=== PATIENT | male | born 1970 | race Caucasian/White ===

== ENCOUNTER 2018-12-19 15:18 | Inpatient (IN) | payer OTHER ==
[2018-12-19 17:34] VITALS: BMI 20.3
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
[2018-12-19] MEDS ORDERED: BISMUTH SUBSALICYLATE 524 MG/30 ML UD PO PRN (19:43)
[2018-12-19] MEDS ORDERED: MAGNESIUM HYDROX 2400MG/30ML ORAL SUSPENSION 30 ML CUP PO PRN (19:43)
[2018-12-19] MEDS ORDERED: MAGNESIUM CITRATE 300 ML BOTTLE PO PRN (19:43)
[2018-12-19] MEDS ORDERED: ACETAMINOPHEN 325 MG TABLET (FP) PO PRN ×2 (19:43)
[2018-12-19] MEDS ORDERED: hydrOXYzine PAMOATE 25 MG CAPSULE (FP) PO PRN (19:43)
[2018-12-19] MEDS ORDERED: NICOTINE POLACRILEX 2 MG GUM BUC PRN (19:43)
[2018-12-19] MEDS ORDERED: guaiFENesin 200 MG/10 ML 10 ML UNIT-DOSE CUPS PO PRN (19:43)
[2018-12-19] MEDS ORDERED: MENTHOL/PHENOL 1 EACH UD MM PRN (19:43)
[2018-12-19] MEDS ORDERED: MAG HYDROX/AL HYDROX/SIMETH 30 ML UNIT-DOSE CUP PO PRN (19:43)
[2018-12-19] MEDS: MELATONIN 5 MG TABLETS PO PRN (21:46)
[2018-12-19] MEDS: diazePAM 5 MG TABLET PO SCH (21:46)
[2018-12-19] MEDS: THIAMINE HCL 100 MG TABLET (FP) PO SCH (21:46)
[2018-12-19] MEDS: IBUPROFEN 400 MG TABLET (FP) PO PRN (21:49)
[2018-12-20] MEDS ORDERED: METHADONE HCL 10 MG TABLET PO SCH (06:00)
[2018-12-20] MEDS ORDERED: METHADONE 160 MG, METHADONE 20 MG, METHADONE 5 MG PO SCH ×2 (06:00→10:00)
[2018-12-20] MEDS: diazePAM 5 MG TABLET PO SCH ×3 (07:40→22:00)
[2018-12-20 09:44] LABS: HEMATOCRIT 35.5 % (35.4-49); HEMOGLOBIN 12.3 GM/dL (11.7-16.9); MCH 31.4 pg (25.7-33.7); MCHC 34.5 g/dl (32.0-35.9); MEAN CELL VOLUME 90.9 fl (80-96); MEAN PLT VOLUME 8.1 fl (7.5-11.1); PLATELET COUNT 245 K/MM3 (134-434); RBC 3.91 M/mm3 (4.00-5.60); RDW 14.3 % (11.9-15.9)
[2018-12-20] MEDS ORDERED: METHADONE HCL 10 MG TABLET ONE (10:10)
[2018-12-20] MEDS ORDERED: METHADONE HCL 5 MG TABLET ONE (10:10)
[2018-12-20] MEDS ORDERED: METHADONE HCL 40 MG DISPERSABLE TABLET ONE (10:10)
[2018-12-20] MEDS: METHADONE 160 MG, METHADONE 20 MG, METHADONE 5 MG PO SCH (10:20)
[2018-12-20] MEDS: NICOTINE 7 MG/24 HOURS TOPICAL PATCH TD SCH (10:21)
[2018-12-20] MEDS: PRENATAL VITAMINS W/ FOLIC ACID TABLET (FP) PO SCH (10:21)
[2018-12-20 10:41] LABS: BILIRUBIN,TOTAL 0.3 mg/dL (0.2-1); BLOOD UREA NITROGEN 16.2 mg/dL (7-18); CALCIUM 8.2 mg/dL (8.5-10.1); CREATININE 0.7 mg/dL (0.55-1.3); TOT PROT 6.6 g/dl (6.4-8.2)
--- NOTE | 2018-12-20 11:03 | PN ---
S CIWA - CIWA Score Nausea/Vomitin Muscle Tremors: 2 Anxiety: 2 Agitation: 2 Paroxysmal Sweats: 2 Orientation: 0-Oriented Tacttile Disturbances: 0-None Auditory Disturbances: 0-None Visual Disturbances: 1-Very Mild Sensitivity Headache: 1-Very Mild CIWA-Ar Total Score: 12 S Progress Note (SOAP) Subjective: c/o of interrupted sleep, chills, sweats Objective: 12/20/18 11:02 Vital Signs Temperature 96.5 F L 12/20/18 09:05 Pulse Rate 49 L 12/20/18 09:05 Respiratory Rate 16 12/20/18 09:05 Blood Pressure 99/60 12/20/18 09:05 O2 Sat by Pulse Oximetry (%) Laboratory Last Values WBC 6.0 K/mm3 (4.0-10.0) 12/20/18 07:40 RBC 3.91 M/mm3 (4.00-5.60) L 12/20/18 07:40 Hgb 12.3 GM/dL (11.7-16.9) 12/20/18 07:40 Hct 35.5 % (35.4-49) 12/20/18 07:40 MCV 90.9 fl (80-96) 12/20/18 07:40 MCH 31.4 pg (25.7-33.7) 12/20/18 07:40 MCHC 34.5 g/dl (32.0-35.9) 12/20/18 07:40 RDW 14.3 % (11.9-15.9) 12/20/18 07:40 Plt Count 245 K/MM3 (134-434) 12/20/18 07:40 MPV 8.1 fl (7.5-11.1) 12/20/18 07:40 Sodium 142 mmol/L (136-145) 12/20/18 07:40 Potassium 4.0 mmol/L (3.5-5.1) 12/20/18 07:40 Chloride 108 mmol/L (98-107) H 12/20/18 07:40 Carbon Dioxide 28 mmol/L (21-32) 12/20/18 07:40 Anion Gap 6 MMOL/L (8-16) L 12/20/18 07:40 BUN 16.2 mg/dL (7-18) 12/20/18 07:40 Creatinine 0.7 mg/dL (0.55-1.3) 12/20/18 07:40 Est GFR (CKD-EPI)AfAm 129.34 12/20/18 07:40 Est GFR (CKD-EPI)NonAf 111.59 12/20/18 07:40 Random Glucose 86 mg/dL (74-106) 12/20/18 07:40 Calcium 8.2 mg/dL (8.5-10.1) L 12/20/18 07:40 Total Bilirubin 0.3 mg/dL (0.2-1) 12/20/18 07:40 AST 27 U/L (15-37) 12/20/18 07:40 ALT 21 U/L (13-61) 12/20/18 07:40 Alkaline Phosphatase 83 U/L (45-117) 12/20/18 07:40 Total Protein 6.6 g/dl (6.4-8.2) 12/20/18 07:40 Albumin 3.0 g/dl (3.4-5.0) L 12/20/18 07:40 labs reviewed Assessment: 12/20/18 11:02 Aox3, irritable no adventitious breath sounds full ROM ambulating in the unit Plan: increase fluids methadone dose of [address] [facility] verified, patient wishes to take medication at 10 Am after breakfast, schedule adjusted as per patients request continue detox continue to monitor
[2018-12-20] MEDS: THIAMINE HCL 100 MG TABLET (FP) PO SCH (22:00)
[2018-12-20] MEDS: MELATONIN 5 MG TABLETS PO PRN (22:00)
[2018-12-21] MEDS: IBUPROFEN 400 MG TABLET (FP) PO PRN (04:44)
[2018-12-21] MEDS: diazePAM 5 MG TABLET PO SCH ×2 (05:53→17:49)
[2018-12-21] MEDS ORDERED: METHADONE HCL 10 MG TABLET ONE (09:05)
[2018-12-21] MEDS ORDERED: METHADONE HCL 5 MG TABLET ONE (09:06)
[2018-12-21] MEDS ORDERED: METHADONE HCL 40 MG DISPERSABLE TABLET ONE (09:06)
[2018-12-21] MEDS: diazePAM 5 MG TABLET PO PRN ×2 (09:08→22:16)
--- NOTE | 2018-12-21 10:33 | PN ---
S CIWA - CIWA Score Nausea/Vomitin-No Nausea/No Vomiting Muscle Tremors: 2 Anxiety: 3 Agitation: 0-Normal Activity Paroxysmal Sweats: 3 Orientation: 0-Oriented Tacttile Disturbances: 0-None Auditory Disturbances: 0-None Visual Disturbances: 0-None Headache: 2-Mild CIWA-Ar Total Score: 10 BHS Progress Note (SOAP) Subjective: c/o mild shakes, anxiety, headache, and sweats. Objective: 12/21/18 10:32 Vital Signs 12/21/18 12/21/18 12/21/18 03:30 06:05 09:09 Temperature 97.8 F 98.9 F Pulse Rate 51 L 61 Respiratory 18 18 18 Rate Blood Pressure 98/51 L 103/60 Lab Results WBC 6.0 K/mm3 (4.0-10.0) 12/20/18 07:40 RBC 3.91 M/mm3 (4.00-5.60) L 12/20/18 07:40 Hgb 12.3 GM/dL (11.7-16.9) 12/20/18 07:40 Hct 35.5 % (35.4-49) 12/20/18 07:40 MCV 90.9 fl (80-96) 12/20/18 07:40 MCHC 34.5 g/dl (32.0-35.9) 12/20/18 07:40 RDW 14.3 % (11.9-15.9) 12/20/18 07:40 Plt Count 245 K/MM3 (134-434) 12/20/18 07:40 Sodium 142 mmol/L (136-145) 12/20/18 07:40 Potassium 4.0 mmol/L (3.5-5.1) 12/20/18 07:40 Chloride 108 mmol/L (98-107) H 12/20/18 07:40 Carbon Dioxide 28 mmol/L (21-32) 12/20/18 07:40 Anion Gap 6 MMOL/L (8-16) L 12/20/18 07:40 BUN 16.2 mg/dL (7-18) 12/20/18 07:40 Creatinine 0.7 mg/dL (0.55-1.3) 12/20/18 07:40 Random Glucose 86 mg/dL (74-106) 12/20/18 07:40 Calcium 8.2 mg/dL (8.5-10.1) L 12/20/18 07:40 Labs noted. Assessment: 12/21/18 10:33 AOX3, in no acute respiratory distress. Full ROM, ambulating in the unit. Withdrawal symptoms. Plan: continue detox.
[2018-12-21] MEDS: METHADONE 160 MG, METHADONE 20 MG, METHADONE 5 MG PO SCH (10:37)
[2018-12-21] MEDS: PRENATAL VITAMINS W/ FOLIC ACID TABLET (FP) PO SCH (10:37)
[2018-12-21] MEDS: NICOTINE 7 MG/24 HOURS TOPICAL PATCH TD SCH (10:39)
[2018-12-21] MEDS: MELATONIN 5 MG TABLETS PO PRN (22:14)
[2018-12-21] MEDS: THIAMINE HCL 100 MG TABLET (FP) PO SCH (22:14)
[2018-12-21] MEDS: METHOCARBAMOL 500 MG TABLET PO PRN (22:16)
[2018-12-22] MEDS: IBUPROFEN 400 MG TABLET (FP) PO PRN ×3 (01:37→19:30)
[2018-12-22] MEDS ORDERED: diazePAM 5 MG TABLET PO ONE (06:00)
[2018-12-22] MEDS ORDERED: METHADONE HCL 10 MG TABLET ONE (08:53)
[2018-12-22] MEDS ORDERED: METHADONE HCL 5 MG TABLET ONE (08:54)
[2018-12-22] MEDS ORDERED: METHADONE HCL 40 MG DISPERSABLE TABLET ONE (08:54)
[2018-12-22] MEDS: METHADONE 160 MG, METHADONE 20 MG, METHADONE 5 MG PO SCH (10:28)
[2018-12-22] MEDS: PRENATAL VITAMINS W/ FOLIC ACID TABLET (FP) PO SCH (10:28)
[2018-12-22] MEDS: NICOTINE 7 MG/24 HOURS TOPICAL PATCH TD SCH (10:29)
[2018-12-22] MEDS: diazePAM 5 MG TABLET PO PRN (10:32)
--- NOTE | 2018-12-22 11:41 | PN ---
[facility] CIWA - CIWA Score Nausea/Vomitin-No Nausea/No Vomiting Muscle Tremors: 2 Anxiety: 2 Agitation: 1-Slight > Activity Paroxysmal Sweats: No Perspiration Orientation: 0-Oriented Tacttile Disturbances: 0-None Auditory Disturbances: 0-None Visual Disturbances: 0-None Headache: 0-None Present CIWA-Ar Total Score: 5 BHS Progress Note (SOAP) Subjective: 48 years old male admitted on 12/19/18 for alcohol withdrawal sx management treated with valium detox regimen patient tolerated well receiving methadone 185 mg po daily Objective: 12/22/18 11:41 Vital Signs Temperature 96.8 F L 12/22/18 09:25 Pulse Rate 60 12/22/18 09:25 Respiratory Rate 18 12/22/18 09:25 Blood Pressure 98/58 L 12/22/18 09:25 O2 Sat by Pulse Oximetry (%) Laboratory Last Values WBC 6.0 K/mm3 (4.0-10.0) 12/20/18 07:40 RBC 3.91 M/mm3 (4.00-5.60) L 12/20/18 07:40 Hgb 12.3 GM/dL (11.7-16.9) 12/20/18 07:40 Hct 35.5 % (35.4-49) 12/20/18 07:40 MCV 90.9 fl (80-96) 12/20/18 07:40 MCH 31.4 pg (25.7-33.7) 12/20/18 07:40 MCHC 34.5 g/dl (32.0-35.9) 12/20/18 07:40 RDW 14.3 % (11.9-15.9) 12/20/18 07:40 Plt Count 245 K/MM3 (134-434) 12/20/18 07:40 MPV 8.1 fl (7.5-11.1) 12/20/18 07:40 Sodium 142 mmol/L (136-145) 12/20/18 07:40 Potassium 4.0 mmol/L (3.5-5.1) 12/20/18 07:40 Chloride 108 mmol/L (98-107) H 12/20/18 07:40 Carbon Dioxide 28 mmol/L (21-32) 12/20/18 07:40 Anion Gap 6 MMOL/L (8-16) L 12/20/18 07:40 BUN 16.2 mg/dL (7-18) 12/20/18 07:40 Creatinine 0.7 mg/dL (0.55-1.3) 12/20/18 07:40 Est GFR (CKD-EPI)AfAm 129.34 12/20/18 07:40 Est GFR (CKD-EPI)NonAf 111.59 12/20/18 07:40 Random Glucose 86 mg/dL (74-106) 12/20/18 07:40 Calcium 8.2 mg/dL (8.5-10.1) L 12/20/18 07:40 Total Bilirubin 0.3 mg/dL (0.2-1) 12/20/18 07:40 AST 27 U/L (15-37) 12/20/18 07:40 ALT 21 U/L (13-61) 12/20/18 07:40 Alkaline Phosphatase 83 U/L (45-117) 12/20/18 07:40 Total Protein 6.6 g/dl (6.4-8.2) 12/20/18 07:40 Albumin 3.0 g/dl (3.4-5.0) L 12/20/18 07:40 RPR Titer Nonreactive (NONREACTIVE) 12/20/18 07:40 lab noted Assessment: 12/22/18 11:41 alcohol withdrawal sx Plan: continue valium detox regimen
[2018-12-22] MEDS: THIAMINE HCL 100 MG TABLET (FP) PO SCH (22:21)
[2018-12-22] MEDS: METHOCARBAMOL 500 MG TABLET PO PRN (22:22)
[2018-12-22] MEDS: MELATONIN 5 MG TABLETS PO PRN (22:23)
[2018-12-22] MEDS: CLOTRIMAZOLE 1% CREAM 15 GM TUBE TP SCH (22:32)
--- NOTE | 2018-12-23 09:16 | DS ---
[facility] Detox Discharge Summary Admission Date: 12/19/18 Discharge Date: 12/23/18 - History Present History: Alcohol Dependence Additional Comments: 48 years old male admitted on 12/19/18 for alcohol withdrawal sx management treated with valium detox regimen patient tolerated well patient is alert oriented x 3 respiratory clear lung bilaterally on auscultation abdomen soft no rebound tenderness skin warm and dry Pertinent Past History: patient agrees to return to his methadone program for behavior therapy and psychosocial therapy bringing in medication list and lab report to methadone program for follow up - Physical Exam Results Vital Signs: Vital Signs Temperature 98.3 F 12/23/18 06:19 Pulse Rate 61 12/23/18 06:19 Respiratory Rate 18 12/23/18 06:19 Blood Pressure 98/51 L 12/23/18 06:19 O2 Sat by Pulse Oximetry (%) Pertinent Admission Physical Exam Findings: alcohol withdrawal sx Laboratory Last Values WBC 6.0 K/mm3 (4.0-10.0) 12/20/18 07:40 RBC 3.91 M/mm3 (4.00-5.60) L 12/20/18 07:40 Hgb 12.3 GM/dL (11.7-16.9) 12/20/18 07:40 Hct 35.5 % (35.4-49) 12/20/18 07:40 MCV 90.9 fl (80-96) 12/20/18 07:40 MCH 31.4 pg (25.7-33.7) 12/20/18 07:40 MCHC 34.5 g/dl (32.0-35.9) 12/20/18 07:40 RDW 14.3 % (11.9-15.9) 12/20/18 07:40 Plt Count 245 K/MM3 (134-434) 12/20/18 07:40 MPV 8.1 fl (7.5-11.1) 12/20/18 07:40 Sodium 142 mmol/L (136-145) 12/20/18 07:40 Potassium 4.0 mmol/L (3.5-5.1) 12/20/18 07:40 Chloride 108 mmol/L (98-107) H 12/20/18 07:40 Carbon Dioxide 28 mmol/L (21-32) 12/20/18 07:40 Anion Gap 6 MMOL/L (8-16) L 12/20/18 07:40 BUN 16.2 mg/dL (7-18) 12/20/18 07:40 Creatinine 0.7 mg/dL (0.55-1.3) 12/20/18 07:40 Est GFR (CKD-EPI)AfAm 129.34 12/20/18 07:40 Est GFR (CKD-EPI)NonAf 111.59 12/20/18 07:40 Random Glucose 86 mg/dL (74-106) 12/20/18 07:40 Calcium 8.2 mg/dL (8.5-10.1) L 12/20/18 07:40 Total Bilirubin 0.3 mg/dL (0.2-1) 12/20/18 07:40 AST 27 U/L (15-37) 12/20/18 07:40 ALT 21 U/L (13-61) 12/20/18 07:40 Alkaline Phosphatase 83 U/L (45-117) 12/20/18 07:40 Total Protein 6.6 g/dl (6.4-8.2) 12/20/18 07:40 Albumin 3.0 g/dl (3.4-5.0) L 12/20/18 07:40 RPR Titer Nonreactive (NONREACTIVE) 12/20/18 07:40 lab noted - Treatment Hospital Course: Detox Protocol Followed, Detoxed Safely, Responded well, Discharged Condition Good, Rehab Referral Accepted Patient has Accepted a Rehab Referral to: methadone maintenance treatement program - Medication Discharge Medications: Ambulatory Orders NK [No Known Home Medication] 12/19/18 - Diagnosis (1) Alcohol abuse Current Visit: Yes Status: Acute (2) Nicotine dependence Current Visit: Yes Status: Acute Qualifiers: Nicotine product type: cigarettes Substance use status: in withdrawal Qualified Code(s): F17.213 - Nicotine dependence, cigarettes, with withdrawal (3) Opioid dependence on agonist therapy Current Visit: Yes Status: Acute - AMA Did Patient Leave Against Medical Advice: No CIWA Score - CIWA Score Nausea/Vomitin-No Nausea/No Vomiting Muscle Tremors: 1-None Visible, but [place] Anxiety: 1-Mildly Anxious Agitation: 0-Normal Activity Paroxysmal Sweats: No Perspiration Orientation: 0-Oriented Tacttile Disturbances: 0-None Auditory Disturbances: 0-None Visual Disturbances: 0-None Headache: 0-None Present CIWA-Ar Total Score: 2
[2018-12-23] MEDS ORDERED: METHADONE HCL 5 MG TABLET ONE (09:23)
[2018-12-23] MEDS ORDERED: METHADONE HCL 40 MG DISPERSABLE TABLET ONE (09:23)
[2018-12-23] MEDS ORDERED: METHADONE HCL 10 MG TABLET ONE (09:23)
[2018-12-23 09:24] VITALS: BP 107/68; PULSE 68; TEMP 97.1
[2018-12-23] MEDS: METHADONE 160 MG, METHADONE 20 MG, METHADONE 5 MG PO SCH (09:37)
[2018-12-23] MEDS: CLOTRIMAZOLE 1% CREAM 15 GM TUBE TP SCH (09:38)
[2018-12-23] MEDS: NICOTINE 7 MG/24 HOURS TOPICAL PATCH TD SCH (09:38)
[2018-12-23] MEDS: PRENATAL VITAMINS W/ FOLIC ACID TABLET (FP) PO SCH (09:41)
[2018-12-23] MEDS: IBUPROFEN 400 MG TABLET (FP) PO PRN (11:38)
== END 2018-12-23 12:52 | disposition other institution (70) | DRG 773 ==
LOC: YASAS 15:18 → Y3N 20:14
PROVIDERS: ADMIT Allergy & Immunology; ATTEND Allergy & Immunology
PROC: HZ2ZZZZ Detoxification Services for Substance Abuse Treatment (ICD-10-PCS; principal; 2018-12-19)
DX: F10.230 Alcohol dependence with withdrawal, uncomplicated (principal); F11.20 Opioid dependence, uncomplicated; F14.20 Cocaine dependence, uncomplicated; F17.213 Nicotine dependence, cigarettes, with withdrawal; Z59.0 Homelessness
CPT/HCPCS: 36415; 71046-TC-FY; 80053; 85027; 86593

== ENCOUNTER 2018-12-23 13:02 | Inpatient (IN) | payer OTHER ==
[2018-12-23] MEDS ORDERED: MAG HYDROX/AL HYDROX/SIMETH 30 ML UNIT-DOSE CUP PO PRN (14:45)
[2018-12-23] MEDS ORDERED: MENTHOL/PHENOL 1 EACH UD MM PRN (14:45)
[2018-12-23] MEDS ORDERED: guaiFENesin 200 MG/10 ML 10 ML UNIT-DOSE CUPS PO PRN (14:45)
[2018-12-23] MEDS ORDERED: ACETAMINOPHEN 325 MG TABLET (FP) PO PRN (14:45)
[2018-12-23] MEDS ORDERED: MAGNESIUM HYDROX 2400MG/30ML ORAL SUSPENSION 30 ML CUP PO PRN (14:45)
[2018-12-23] MEDS ORDERED: MAGNESIUM CITRATE 300 ML BOTTLE PO PRN (14:45)
[2018-12-23] MEDS ORDERED: NICOTINE POLACRILEX 2 MG GUM BUC PRN (14:45)
[2018-12-23] MEDS ORDERED: LOPERAMIDE HCL 2 MG CAPSULE PO PRN (14:45)
[2018-12-23] MEDS ORDERED: P-EPHED 60MG/TRIPROLIDI 2.5MG TABLET PO PRN (14:45)
--- NOTE | 2018-12-23 14:45 | HP ---
[facility] Rehab Assess/Revision - Admission History Admitted to Rehab from: [facility] Date of Admission to Rehab: 12/23/18 - Findings Detox History & Physical reviewed: Yes Concur with findings: Yes Comments/Additional Findings: transferred from detox to rehab as per protocol Inpatient Rehab Admission - Rehab Decision to Admit Inpatient rehab admission?: Yes - Initial Determination Are CD services needed?: Yes Free of communicable disease: Yes Not in need of hospitalization: Yes - Rehab Admission Criteria Previous failed treatment: Yes Poor recovery environment: Yes Comorbidities: Yes Lacks judgement: Yes Patient is meeting Inpatient Rehab admission criteria:: Yes
[2018-12-23] MEDS: IBUPROFEN 400 MG TABLET (FP) PO PRN (19:44)
[2018-12-23] MEDS: THIAMINE HCL 100 MG TABLET (FP) PO SCH (21:23)
[2018-12-23] MEDS: MELATONIN 5 MG TABLETS PO PRN (21:23)
[2018-12-23] MEDS: CLOTRIMAZOLE 1% CREAM 15 GM TUBE TP SCH (21:53)
[2018-12-24] MEDS ORDERED: METHADONE HCL 10 MG TABLET PO ONE (11:05)
[2018-12-24] MEDS ORDERED: METHADONE HCL 5 MG TABLET ONE (11:30)
[2018-12-24] MEDS ORDERED: METHADONE HCL 40 MG DISPERSABLE TABLET ONE (11:30)
[2018-12-24] MEDS ORDERED: METHADONE HCL 10 MG TABLET ONE (11:30)
[2018-12-24] MEDS ORDERED: METHADONE 160 MG, METHADONE 20 MG, METHADONE 5 MG PO ONE (11:30)
[2018-12-24] MEDS: PRENATAL VITAMINS W/ FOLIC ACID TABLET (FP) PO SCH (11:37)
[2018-12-24] MEDS: CLOTRIMAZOLE 1% CREAM 15 GM TUBE TP SCH ×2 (11:37→21:35)
[2018-12-24] MEDS: IBUPROFEN 400 MG TABLET (FP) PO PRN ×2 (11:38→18:09)
[2018-12-24] MEDS: NICOTINE 7 MG/24 HOURS TOPICAL PATCH TD SCH (11:39)
--- NOTE | 2018-12-24 13:22 | PN ---
S Progress Note (SOAP) Subjective: Pt c/o severe pain to left lower jaw/tooth. Reports he's had it for a long time but has not taken time to address it. reports he has a dentist at [facility] in the [place] and will follow up after rehab treatment. Objective: 12/24/18 13:19 Vital Signs - 24 hr 12/24/18 07:55 Temperature 97.3 F L Pulse Rate 55 L Respiratory 18 Rate Blood Pressure 95/54 L Oral exam:Missing most teeth. left lower premolar tooth abscess with redness and swelling Assessment: 12/24/18 13:20 Poor oral hygiene Tooth decay Tooth Abcess Plan: Augmentin 875 mg po BID x 10 days, first dose now. Lidocaine viscous 2% to swish and spit as directed. motrin prn for pain Pt agreed to follow up with his dentist at [facility] in the [place](Pt does not remember all details but states he has a dentist where he can go after rehab ).
[2018-12-24] MEDS ORDERED: AMOX TR/POT CLAV 875MG/125MG TABLETS (FP) PO ONE (14:00)
[2018-12-24] MEDS ORDERED: AMOX TR/POT CLAV 875MG/125MG TABLETS (FP) PO SCH (17:30)
[2018-12-24] MEDS: MELATONIN 5 MG TABLETS PO PRN (21:35)
[2018-12-24] MEDS: THIAMINE HCL 100 MG TABLET (FP) PO SCH (21:35)
[2018-12-24] MEDS: AMOX TR/POT CLAV 875MG/125MG TABLETS (FP) PO SCH (21:35)
[2018-12-25] MEDS: IBUPROFEN 400 MG TABLET (FP) PO PRN ×3 (02:42→21:36)
[2018-12-25] MEDS ORDERED: METHADONE HCL 10 MG TABLET PO SCH (06:00)
[2018-12-25] MEDS ORDERED: METHADONE 160 MG, METHADONE 20 MG, METHADONE 5 MG PO SCH (06:00)
[2018-12-25] MEDS: PRENATAL VITAMINS W/ FOLIC ACID TABLET (FP) PO SCH (10:30)
[2018-12-25] MEDS: AMOX TR/POT CLAV 875MG/125MG TABLETS (FP) PO SCH ×2 (10:30→21:35)
[2018-12-25] MEDS: NICOTINE 7 MG/24 HOURS TOPICAL PATCH TD SCH (10:30)
[2018-12-25] MEDS: CLOTRIMAZOLE 1% CREAM 15 GM TUBE TP SCH ×2 (10:31→21:36)
[2018-12-25] MEDS ORDERED: METHADONE HCL 5 MG TABLET ONE (10:32)
[2018-12-25] MEDS ORDERED: METHADONE HCL 40 MG DISPERSABLE TABLET ONE (10:32)
[2018-12-25] MEDS ORDERED: METHADONE HCL 10 MG TABLET ONE (10:32)
[2018-12-25] MEDS: METHADONE 160 MG, METHADONE 20 MG, METHADONE 5 MG PO SCH (10:33)
[2018-12-25] MEDS: THIAMINE HCL 100 MG TABLET (FP) PO SCH (21:36)
[2018-12-25] MEDS: MELATONIN 5 MG TABLETS PO PRN (21:36)
[2018-12-25] MEDS: LIDOCAINE VISCOUS 2% ORAL/TOP 20 ML UNIT-DOSE CUP MM PRN (21:38)
[2018-12-26] MEDS ORDERED: METHADONE HCL 5 MG TABLET ONE (09:49)
[2018-12-26] MEDS ORDERED: METHADONE HCL 10 MG TABLET ONE (09:50)
[2018-12-26] MEDS ORDERED: METHADONE HCL 40 MG DISPERSABLE TABLET ONE (09:50)
[2018-12-26] MEDS: METHADONE 160 MG, METHADONE 20 MG, METHADONE 5 MG PO SCH (09:52)
[2018-12-26] MEDS: CLOTRIMAZOLE 1% CREAM 15 GM TUBE TP SCH ×2 (09:53→21:41)
[2018-12-26] MEDS: IBUPROFEN 400 MG TABLET (FP) PO PRN ×2 (09:53→19:59)
[2018-12-26] MEDS: AMOX TR/POT CLAV 875MG/125MG TABLETS (FP) PO SCH ×2 (09:53→21:40)
[2018-12-26] MEDS: PRENATAL VITAMINS W/ FOLIC ACID TABLET (FP) PO SCH (09:53)
[2018-12-26] MEDS: NICOTINE 7 MG/24 HOURS TOPICAL PATCH TD SCH (09:54)
[2018-12-26] MEDS: LIDOCAINE VISCOUS 2% ORAL/TOP 20 ML UNIT-DOSE CUP MM PRN (11:59)
[2018-12-26] MEDS: THIAMINE HCL 100 MG TABLET (FP) PO SCH (21:40)
[2018-12-26] MEDS: MELATONIN 5 MG TABLETS PO PRN (21:41)
[2018-12-27] MEDS ORDERED: METHADONE HCL 10 MG TABLET ONE (10:51)
[2018-12-27] MEDS ORDERED: METHADONE HCL 5 MG TABLET ONE (10:51)
[2018-12-27] MEDS: METHADONE 160 MG, METHADONE 20 MG, METHADONE 5 MG PO SCH (10:52)
[2018-12-27] MEDS ORDERED: METHADONE HCL 40 MG DISPERSABLE TABLET ONE (10:52)
[2018-12-27] MEDS: PRENATAL VITAMINS W/ FOLIC ACID TABLET (FP) PO SCH (10:54)
[2018-12-27] MEDS: AMOX TR/POT CLAV 875MG/125MG TABLETS (FP) PO SCH ×2 (10:54→21:44)
[2018-12-27] MEDS: IBUPROFEN 400 MG TABLET (FP) PO PRN ×2 (10:55→21:45)
[2018-12-27] MEDS: NICOTINE 7 MG/24 HOURS TOPICAL PATCH TD SCH (10:55)
[2018-12-27] MEDS: CLOTRIMAZOLE 1% CREAM 15 GM TUBE TP SCH ×2 (10:55→21:45)
[2018-12-27] MEDS: LIDOCAINE VISCOUS 2% ORAL/TOP 20 ML UNIT-DOSE CUP MM PRN (13:24)
[2018-12-27] MEDS: THIAMINE HCL 100 MG TABLET (FP) PO SCH (21:44)
[2018-12-27] MEDS: MELATONIN 5 MG TABLETS PO PRN (21:44)
[2018-12-28] MEDS ORDERED: METHADONE HCL 5 MG TABLET ONE (09:12)
[2018-12-28] MEDS ORDERED: METHADONE HCL 10 MG TABLET ONE (09:15)
[2018-12-28] MEDS ORDERED: METHADONE HCL 40 MG DISPERSABLE TABLET ONE (09:16)
[2018-12-28] MEDS: AMOX TR/POT CLAV 875MG/125MG TABLETS (FP) PO SCH ×2 (10:21→21:39)
[2018-12-28] MEDS: METHADONE 160 MG, METHADONE 20 MG, METHADONE 5 MG PO SCH (10:22)
[2018-12-28] MEDS: NICOTINE 7 MG/24 HOURS TOPICAL PATCH TD SCH (10:24)
[2018-12-28] MEDS: CLOTRIMAZOLE 1% CREAM 15 GM TUBE TP SCH ×2 (10:25→21:40)
[2018-12-28] MEDS: PRENATAL VITAMINS W/ FOLIC ACID TABLET (FP) PO SCH (10:26)
[2018-12-28] MEDS: THIAMINE HCL 100 MG TABLET (FP) PO SCH (21:39)
[2018-12-28] MEDS: MELATONIN 5 MG TABLETS PO PRN (21:40)
[2018-12-29] MEDS ORDERED: METHADONE HCL 5 MG TABLET ONE (09:14)
[2018-12-29] MEDS ORDERED: METHADONE HCL 10 MG TABLET ONE (09:15)
[2018-12-29] MEDS ORDERED: METHADONE HCL 40 MG DISPERSABLE TABLET ONE (09:16)
[2018-12-29] MEDS: NICOTINE 7 MG/24 HOURS TOPICAL PATCH TD SCH (10:48)
[2018-12-29] MEDS: AMOX TR/POT CLAV 875MG/125MG TABLETS (FP) PO SCH ×2 (10:48→21:40)
[2018-12-29] MEDS: PRENATAL VITAMINS W/ FOLIC ACID TABLET (FP) PO SCH (10:48)
[2018-12-29] MEDS: CLOTRIMAZOLE 1% CREAM 15 GM TUBE TP SCH ×2 (10:49→21:39)
[2018-12-29] MEDS: METHADONE 160 MG, METHADONE 20 MG, METHADONE 5 MG PO SCH (10:49)
[2018-12-29] MEDS: THIAMINE HCL 100 MG TABLET (FP) PO SCH (21:40)
[2018-12-29] MEDS: MELATONIN 5 MG TABLETS PO PRN (21:40)
[2018-12-30] MEDS ORDERED: METHADONE HCL 5 MG TABLET ONE (10:35)
[2018-12-30] MEDS ORDERED: METHADONE HCL 10 MG TABLET ONE (10:36)
[2018-12-30] MEDS ORDERED: METHADONE HCL 40 MG DISPERSABLE TABLET ONE (10:36)
[2018-12-30] MEDS: METHADONE 160 MG, METHADONE 20 MG, METHADONE 5 MG PO SCH (10:36)
[2018-12-30] MEDS: AMOX TR/POT CLAV 875MG/125MG TABLETS (FP) PO SCH ×2 (10:39→21:38)
[2018-12-30] MEDS: PRENATAL VITAMINS W/ FOLIC ACID TABLET (FP) PO SCH (10:39)
[2018-12-30] MEDS: NICOTINE 7 MG/24 HOURS TOPICAL PATCH TD SCH (10:39)
[2018-12-30] MEDS: CLOTRIMAZOLE 1% CREAM 15 GM TUBE TP SCH ×2 (10:40→21:39)
[2018-12-30] MEDS: IBUPROFEN 400 MG TABLET (FP) PO PRN ×2 (10:41→21:38)
[2018-12-30] MEDS: THIAMINE HCL 100 MG TABLET (FP) PO SCH (21:38)
[2018-12-30] MEDS: MELATONIN 5 MG TABLETS PO PRN (21:38)
[2018-12-30] MEDS: LIDOCAINE VISCOUS 2% ORAL/TOP 20 ML UNIT-DOSE CUP MM PRN (21:40)
[2018-12-31] MEDS ORDERED: METHADONE HCL 10 MG TABLET PO SCH (10:00)
[2018-12-31] MEDS ORDERED: METHADONE HCL 5 MG TABLET ONE (10:06)
[2018-12-31] MEDS ORDERED: METHADONE HCL 10 MG TABLET ONE (10:06)
[2018-12-31] MEDS: METHADONE 160 MG, METHADONE 20 MG, METHADONE 5 MG PO SCH (10:07)
[2018-12-31] MEDS ORDERED: METHADONE HCL 40 MG DISPERSABLE TABLET ONE (10:07)
[2018-12-31] MEDS: PRENATAL VITAMINS W/ FOLIC ACID TABLET (FP) PO SCH (10:09)
[2018-12-31] MEDS: AMOX TR/POT CLAV 875MG/125MG TABLETS (FP) PO SCH ×2 (10:09→21:45)
[2018-12-31] MEDS: CLOTRIMAZOLE 1% CREAM 15 GM TUBE TP SCH ×2 (10:10→21:47)
[2018-12-31] MEDS: NICOTINE 7 MG/24 HOURS TOPICAL PATCH TD SCH (10:10)
[2018-12-31] MEDS: THIAMINE HCL 100 MG TABLET (FP) PO SCH (21:45)
[2018-12-31] MEDS: IBUPROFEN 400 MG TABLET (FP) PO PRN (21:46)
[2018-12-31] MEDS: MELATONIN 5 MG TABLETS PO PRN (21:46)
[2019-01-01] MEDS ORDERED: METHADONE HCL 10 MG TABLET ONE (10:41)
[2019-01-01] MEDS ORDERED: METHADONE HCL 5 MG TABLET ONE (10:41)
[2019-01-01] MEDS ORDERED: METHADONE HCL 40 MG DISPERSABLE TABLET ONE (10:41)
[2019-01-01] MEDS: METHADONE 160 MG, METHADONE 20 MG, METHADONE 5 MG PO SCH (10:42)
[2019-01-01] MEDS: PRENATAL VITAMINS W/ FOLIC ACID TABLET (FP) PO SCH (10:44)
[2019-01-01] MEDS: CLOTRIMAZOLE 1% CREAM 15 GM TUBE TP SCH ×2 (10:44→21:48)
[2019-01-01] MEDS: NICOTINE 7 MG/24 HOURS TOPICAL PATCH TD SCH (10:44)
[2019-01-01] MEDS: AMOX TR/POT CLAV 875MG/125MG TABLETS (FP) PO SCH ×2 (10:44→21:47)
[2019-01-01] MEDS: THIAMINE HCL 100 MG TABLET (FP) PO SCH (21:47)
[2019-01-01] MEDS: MELATONIN 5 MG TABLETS PO PRN (21:48)
[2019-01-02] MEDS: LIDOCAINE VISCOUS 2% ORAL/TOP 20 ML UNIT-DOSE CUP MM PRN ×4 (07:10→21:48)
[2019-01-02] MEDS: CLOTRIMAZOLE 1% CREAM 15 GM TUBE TP SCH ×2 (10:58→21:46)
[2019-01-02] MEDS: NICOTINE 7 MG/24 HOURS TOPICAL PATCH TD SCH (10:58)
[2019-01-02] MEDS: PRENATAL VITAMINS W/ FOLIC ACID TABLET (FP) PO SCH (10:58)
[2019-01-02] MEDS: AMOX TR/POT CLAV 875MG/125MG TABLETS (FP) PO SCH ×2 (10:58→21:45)
[2019-01-02] MEDS ORDERED: METHADONE HCL 5 MG TABLET ONE (10:59)
[2019-01-02] MEDS ORDERED: METHADONE HCL 10 MG TABLET ONE (11:00)
[2019-01-02] MEDS ORDERED: METHADONE HCL 40 MG DISPERSABLE TABLET ONE (11:00)
[2019-01-02] MEDS: METHADONE 160 MG, METHADONE 20 MG, METHADONE 5 MG PO SCH (11:01)
--- NOTE | 2019-01-02 15:51 | PN ---
[facility] Progress Note Note: Pt c/o Insomnia and unable to sleep with Melatonin 10 mg HS. Requesting to see the psych for "stronger sleeping pill". Pt appears very anxious. alert o x 3. Oob ambulating with steady gait. Vital Signs - 24 hr 01/02/19 01/02/19 01/02/19 00:30 03:30 07:31 Temperature 97.3 F L Pulse Rate 57 L Respiratory 18 18 18 Rate Blood Pressure 95/62 A/P Insomnia Vistaril 50 mg po Q4H prn for anxiety Psych consult for insomnia.
[2019-01-02] MEDS: IBUPROFEN 400 MG TABLET (FP) PO PRN ×2 (16:32→21:47)
[2019-01-02] MEDS: MELATONIN 5 MG TABLETS PO PRN (21:45)
[2019-01-02] MEDS: THIAMINE HCL 100 MG TABLET (FP) PO SCH (21:45)
[2019-01-02] MEDS: hydrOXYzine PAMOATE 50 MG CAPSULE (FP) PO PRN (21:48)
[2019-01-03] MEDS: hydrOXYzine PAMOATE 50 MG CAPSULE (FP) PO PRN ×4 (06:40→22:08)
[2019-01-03] MEDS: LIDOCAINE VISCOUS 2% ORAL/TOP 20 ML UNIT-DOSE CUP MM PRN ×2 (06:43→23:20)
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
[2019-01-03] MEDS ORDERED: METHADONE HCL 5 MG TABLET ONE (09:31)
[2019-01-03] MEDS ORDERED: METHADONE HCL 10 MG TABLET ONE (09:31)
[2019-01-03] MEDS ORDERED: METHADONE HCL 40 MG DISPERSABLE TABLET ONE (09:32)
[2019-01-03] MEDS: AMOX TR/POT CLAV 875MG/125MG TABLETS (FP) PO SCH (10:36)
[2019-01-03] MEDS: METHADONE 160 MG, METHADONE 20 MG, METHADONE 5 MG PO SCH (10:39)
[2019-01-03] MEDS: CLOTRIMAZOLE 1% CREAM 15 GM TUBE TP SCH ×2 (10:39→22:06)
[2019-01-03] MEDS: PRENATAL VITAMINS W/ FOLIC ACID TABLET (FP) PO SCH (10:40)
[2019-01-03] MEDS: NICOTINE 7 MG/24 HOURS TOPICAL PATCH TD SCH (10:40)
--- NOTE | 2019-01-03 12:53 | PN ---
S Progress Note Note: Pt is a 48 y/o male with a hx of ALISSON admitted to rehab after completing detox on . pt has met with his counselor Ms. Betzy Bgogs and has been referred to CD aftercare at [facility] at [place]. Pt has a PCP Dr. Beny Reyes M.D at [facility] on [address], [place], [place] for medical management. Pt is currently in VIP -MMTP with Methadone 185 mg po daily and will follow up with parent clinic after discharge on 01/06/19. Vital Signs - 24 hr 01/03/19 01/03/19 01/03/19 00:30 03:30 07:47 Temperature 97.6 F Pulse Rate 60 Respiratory 18 18 18 Rate Blood Pressure 108/66 Completing Augmentin treatment today for tooth problems. Pt reminded to follow through with treatment recommendations. Follow up with dental appointment after discharge on 01/06/19. Agreeable with poc.
[2019-01-03] MEDS: THIAMINE HCL 100 MG TABLET (FP) PO SCH (22:06)
[2019-01-03] MEDS: SUVOREXANT 10 MG TABLET PO PRN (22:07)
[2019-01-04] MEDS ORDERED: METHADONE HCL 10 MG TABLET ONE (10:39)
[2019-01-04] MEDS ORDERED: METHADONE HCL 5 MG TABLET ONE (10:39)
[2019-01-04] MEDS ORDERED: METHADONE HCL 40 MG DISPERSABLE TABLET ONE (10:39)
[2019-01-04] MEDS: METHADONE 160 MG, METHADONE 20 MG, METHADONE 5 MG PO SCH (10:40)
[2019-01-04] MEDS: CLOTRIMAZOLE 1% CREAM 15 GM TUBE TP SCH ×2 (10:42→21:47)
[2019-01-04] MEDS: PRENATAL VITAMINS W/ FOLIC ACID TABLET (FP) PO SCH (10:43)
[2019-01-04] MEDS: NICOTINE 7 MG/24 HOURS TOPICAL PATCH TD SCH (10:43)
[2019-01-04] MEDS: hydrOXYzine PAMOATE 50 MG CAPSULE (FP) PO PRN ×3 (10:44→21:45)
[2019-01-04] MEDS: LIDOCAINE VISCOUS 2% ORAL/TOP 20 ML UNIT-DOSE CUP MM PRN ×2 (10:45→21:47)
[2019-01-04] MEDS: THIAMINE HCL 100 MG TABLET (FP) PO SCH (21:45)
[2019-01-04] MEDS: SUVOREXANT 10 MG TABLET PO PRN (21:46)
[2019-01-05 07:30] VITALS: PULSE 68
[2019-01-05] MEDS ORDERED: METHADONE HCL 5 MG TABLET ONE (10:12)
[2019-01-05] MEDS ORDERED: METHADONE HCL 40 MG DISPERSABLE TABLET ONE (10:12)
[2019-01-05] MEDS ORDERED: METHADONE HCL 10 MG TABLET ONE (10:12)
[2019-01-05] MEDS: METHADONE 160 MG, METHADONE 20 MG, METHADONE 5 MG PO SCH (10:13)
[2019-01-05] MEDS: hydrOXYzine PAMOATE 50 MG CAPSULE (FP) PO PRN ×2 (10:16→21:42)
[2019-01-05] MEDS: NICOTINE 7 MG/24 HOURS TOPICAL PATCH TD SCH (10:16)
[2019-01-05] MEDS: PRENATAL VITAMINS W/ FOLIC ACID TABLET (FP) PO SCH (10:16)
[2019-01-05] MEDS: CLOTRIMAZOLE 1% CREAM 15 GM TUBE TP SCH ×2 (10:16→21:44)
[2019-01-05] MEDS: LIDOCAINE VISCOUS 2% ORAL/TOP 20 ML UNIT-DOSE CUP MM PRN (14:52)
[2019-01-05] MEDS: THIAMINE HCL 100 MG TABLET (FP) PO SCH (21:44)
[2019-01-05] MEDS ORDERED: SUVOREXANT 5 MG TABLET PO PRN (22:00)
[2019-01-06 07:21] VITALS: BP 90/60; TEMP 97.6
--- NOTE | 2019-01-06 09:11 | DS ---
[facility] Rehab Discharge Summary - [facility] Rehab Discharge Summary Admission Date: 12/23/18 Discharge Date: 01/06/19 - History Present History: Alcohol dependence, Cocaine dependence, MMTP (VIP-MMTP) Additional Comments: Pt is a 48 y/o male with a hx of ALISSON admitted to rehab after completing detox on . pt has met with his counselor Ms. Betzy Boggs and has been referred to CD aftercare at [facility] at [place]. Pt has a PCP Dr. Beny Reyes M.D at [facility] on [address], [place], [place] for medical management. Pt is currently in VIP -MMTP with Methadone 185 mg po daily and will follow up with parent clinic after discharge on 01/06/19. Pertinent Past History: S/P Tendon repair Tooth Decay Chronic Anxiety Insomnia - Discharge Physical Exam Vital Signs: Vital Signs Temperature 97.6 F 01/06/19 07:20 Pulse Rate 68 01/06/19 07:20 Respiratory Rate 18 01/06/19 07:20 Blood Pressure 90/60 01/06/19 07:20 O2 Sat by Pulse Oximetry (%) Alert o x 3 nad oob ambulating with steady gait cardiac:s1 s2, rrr lungs:cta,alber. abdomen:soft,nt,flat,+bs extremities/skin:no edema,full ROM,skin intact Pertinent Admission Physical Exam Findings: Unchanged from detox admission - Treatment Discharge Condition: Discharge condition good Hospital Course: Rehabilitated safely and responded well CD aftercare referral accepted - Medication Discharge Medications: Ambulatory Orders NK [No Known Home Medication] 12/19/18 - Medication-Assisted Treatment (MAT) Medication-Assisted Treatment (MAT): No - Discharge Instructions Diet, activity, other medical instructions: Diet:Regular Activity: oob ad fern Other medical instructions:follow up with Cd aftercare recommendation as scheduled. follow up with primary care within 1-2 weeks after discharge. Follow up with dental appointment to address poor dental hygiene issues ALISON. - Diagnosis (1) Alcohol use disorder Status: Chronic (2) Cocaine use disorder Status: Chronic (3) Nicotine dependence Status: Chronic Qualifiers: Nicotine product type: cigarettes Substance use status: uncomplicated Qualified Code(s): F17.210 - Nicotine dependence, cigarettes, uncomplicated (4) Opioid dependence on agonist therapy Status: Chronic (5) Tooth abscess Status: Acute - Follow-up Referral Minutes to complete discharge: 20 - AMA Did Patient Leave Against Medical Advice: No
[2019-01-06] MEDS ORDERED: METHADONE HCL 10 MG TABLET ONE (09:14)
[2019-01-06] MEDS ORDERED: METHADONE HCL 5 MG TABLET ONE (09:14)
[2019-01-06] MEDS ORDERED: METHADONE HCL 40 MG DISPERSABLE TABLET ONE (09:15)
[2019-01-06] MEDS: METHADONE 160 MG, METHADONE 20 MG, METHADONE 5 MG PO SCH (09:18)
[2019-01-06] MEDS: CLOTRIMAZOLE 1% CREAM 15 GM TUBE TP SCH (09:19)
[2019-01-06] MEDS: NICOTINE 7 MG/24 HOURS TOPICAL PATCH TD SCH (09:19)
[2019-01-06] MEDS: PRENATAL VITAMINS W/ FOLIC ACID TABLET (FP) PO SCH (09:19)
[2019-01-06] MEDS: hydrOXYzine PAMOATE 50 MG CAPSULE (FP) PO PRN (09:20)
== END 2019-01-06 10:25 | disposition home or self-care (01) | DRG 772 ==
LOC: YASAS 13:02 → Y5N 13:03
PROVIDERS: ADMIT Neuromusculoskeletal Medicine & OMM; ATTEND Neuromusculoskeletal Medicine & OMM
PROC: HZ40ZZZ Group Counseling for Substance Abuse Treatment, Cognitive (ICD-10-PCS; principal; 2018-12-23)
DX: F10.20 Alcohol dependence, uncomplicated (principal); F11.20 Opioid dependence, uncomplicated; F14.20 Cocaine dependence, uncomplicated; F17.210 Nicotine dependence, cigarettes, uncomplicated; F19.24 Other psychoactive substance dependence with psychoactive substance-induced mood disorder; K04.7 Periapical abscess without sinus; G47.00 Insomnia, unspecified; Z98.890 Other specified postprocedural states; Z59.0 Homelessness